=== PATIENT | female | born 1960 | race Caucasian/White ===

== ENCOUNTER 2019-02-22 12:51 | Observation (INO) | payer OTHER ==
[~2019-02-22] VITALS: Ht 160 cm; Wt 54.4 kg
[~2019-02-22 12:51] MED LIST: CITA10TA11 PO; GABA400C PO; HYDR-5123 PO; METO10TA10 PO; PANT20EC PO; QUET300T1 PO
[2019-02-22 13:27] VITALS: BP 138/80
--- NOTE | 2019-02-22 13:29 | NUR ---
AMBULATES BACK TO THE LOBBY
[2019-02-22 16:34] LABS: BASOPHILS # (AUTO) 0.1 K/uL (0.00-0.22); BASOPHILS % (AUTO) 0.8 % (0.0-2.0); EOSINOPHILS # (AUTO) 0.1 K/uL (0-0.4); EOSINOPHILS % (AUTO) 0.6 % (0.0-4.0); HEMATOCRIT 40.2 % (36-48); HEMOGLOBIN 13.3 g/dL (12.0-16.0); LYMPHOCYTES # (AUTO) 3.3 K/uL (2.5-16.5); LYMPHOCYTES % (AUTO) 37.3 % (20.5-51.1); MEAN CORPUSCULAR HEMOGLOBIN 28 pg (27-31); MEAN CORPUSCULAR HGB CONC 33 g/dL (33-37); MEAN CORPUSCULAR VOLUME 85.8 fL (80-94); MONOCYTES # (AUTO) 0.6 K/uL (0.8-1.0); MONOCYTES % (AUTO) 7.3 % (1.7-9.3); NEUTROPHILS # (AUTO) 4.7 K/uL (1.8-7.7); PLATELET COUNT (AUTO) 440 K/uL (140-450); RED BLOOD CELL COUNT(AUTO) 4.68 MIL/uL (4.20-5.40); RED CELL DISTRIBUTION WIDTH 15.4 % (11.6-13.7); WHITE BLOOD COUNT (AUTO) 8.7 K/uL (4.8-10.8)
--- NOTE | 2019-02-22 16:35 | NUR ---
PT AMBULATED TO BED 08
--- NOTE | 2019-02-22 16:49 | NUR ---
C/O ABDOMINAL PAIN, UNABLE TO HOLD FOOD FOR ONE WEEK , UNABLE TO URINATE SINCE LAST FRIDAY ( TWO DAYS AGO) PT WENT TO [place] 6 WEEKS AGO, THEN TRANSFERRED TO [place]. HX: GERD . DENIES V/D; SKIN IS PINK/WARM/DRY; AAOX4 WITH EVEN AND STEADY GAIT; LUNGS CLEAR BL; HR EVEN AND REGULAR; PT DENIES ANY FEVER, SOB, AT THIS TIME; PATIENT STATES PAIN OF 10/10 AT THIS TIME; VSS; PATIENT POSITIONED FOR COMFORT; HOB ELEVATED; BEDRAILS UP X2; BED DOWN. ER MD MADE AWARE OF PT STATUS.
[2019-02-22] MEDS ORDERED: NACL 0.9% 1,000 ML IV ONE ×2 (16:55→19:05)
[2019-02-22] MEDS ORDERED: ALUMINUM HYD/MAG/SIMETHICONE 30 ML, DICYCLOMINE HCL LIQUID 20 MG, LIDOCAINE VISCOUS 2% ... PO ONE ×3 (16:55)
[2019-02-22] MEDS ORDERED: ONDANSETRON 4 MG/2 ML VIAL IVP ONE (16:55)
[2019-02-22 16:57] LABS: ALBUMIN 4.1 g/dL (3.4-5.0); CARBON DIOXIDE 28.1 mmol/L (21-32); POTASSIUM 4.1 mmol/L (3.5-5.1); TOTAL BILIRUBIN 0.4 mg/dL (0.0-1.0)
[2019-02-22] MEDS ORDERED: ALUMINUM HYD/MAG/SIMETHICONE 30 ML UDC ONE (16:59)
[2019-02-22] MEDS ORDERED: DICYCLOMINE HCL LIQUID 10 MG/5 ML UDC ONE (16:59)
[2019-02-22] MEDS ORDERED: LIDOCAINE VISCOUS 2% 20 ML UDC ONE (16:59)
--- NOTE | 2019-02-22 17:39 | NUR ---
PT LEFT FOR ABD XRAY PER TECH PER WHEELCHAIR.
[2019-02-22] MEDS ORDERED: MORPHINE SULFATE 4 MG/ML SYR IVP ONE (18:35)
--- NOTE | 2019-02-22 19:07 | NUR ---
RECEIVED REPORT FROM MAEVE PARTIDA.
--- NOTE | 2019-02-22 19:07 | NUR ---
endorsed pt to PM shift RN.
[2019-02-22] MEDS ORDERED: TRAZ-343 PO (19:57)
[2019-02-22] MEDS ORDERED: QUET400T PO (19:58)
[2019-02-22] MEDS ORDERED: CITA-72 PO (19:59)
[2019-02-22] MEDS ORDERED: MIRT30TA PO (19:59)
[2019-02-22] MEDS ORDERED: ROPI2TER PO (20:00)
[2019-02-22] MEDS ORDERED: CLON1TAB PO (20:00)
[2019-02-22] MEDS ORDERED: QUET100T PO (20:01)
[2019-02-22] MEDS ORDERED: OMEP20TC12 PO (20:02)
--- NOTE | 2019-02-22 20:23 | NUR ---
Patient Will go to room. Belongings list completed. Report to [ MAEVE GRIMM].
[2019-02-22 20:25] VITALS: BP 154/70
--- NOTE | 2019-02-22 20:25 | NUR ---
RECEIVED PT FROM ER VIA WHEELCHAIR PT AMBULATORY AAOX4 COMPLAINING FOR N/V FOR 5 DAYS, NOT ACTIVE VOMITING AT THIS TIME HL ON LEFT WRIST PATENT MRSA NARES PROTOCOL TAKEN AND SENT TO LAB PT IS ORIENTED TO THE FLOOR CALL LIGHT WITHIN REACH
[2019-02-22] MEDS ORDERED: traZODone 50 MG TAB PO SCH (21:00)
[2019-02-22] MEDS ORDERED: MIRTAZAPINE 15 MG TAB PO SCH (21:00)
[2019-02-22] MEDS ORDERED: MAGNESIUM OXIDE 400 MG TAB PO PRN (21:50)
[2019-02-22] MEDS ORDERED: LORazepam 2 MG/ML VIAL IVP PRN (21:50)
[2019-02-22] MEDS ORDERED: ZOLPIDEM 5 MG TAB PO PRN (21:50)
[2019-02-22] MEDS ORDERED: ONDANSETRON 4 MG/2 ML VIAL IVP PRN (21:50)
[2019-02-22] MEDS ORDERED: DOCUSATE SODIUM 250 MG GELCAP PO PRN (21:50)
[2019-02-22] MEDS ORDERED: MAG SULF 2000 MG/WATER PREMIX 50 ML IV PRN (21:50)
[2019-02-22] MEDS ORDERED: HYDROcodone/APAP 5/325 MG 1 TAB TAB PO PRN (21:50)
[2019-02-22] MEDS ORDERED: ACETAMINOPHEN 325 MG TAB PO PRN (21:50)
[2019-02-22] MEDS ORDERED: POTASSIUM CHLORIDE 10 MEQ TABER PO PRN (21:50)
[2019-02-22] MEDS ORDERED: diphenhydrAMINE 50 MG/ML VIAL IVP PRN (21:50)
[2019-02-22] MEDS: DEXT 5% / NACL 0.45% 1,000 ML IV SCH (23:13)
--- NOTE | 2019-02-22 23:20 | NUR ---
DR LILLY CALL TO BE INFORMED ABOUT PT CONDITION AND HE ORDER EGD FOR TOMORROW AND KEEP PT NPO, AND PT IS AWARE
[2019-02-22] MEDS: MORPHINE SULFATE 2 MG/ML SYR IVP PRN (23:31)
[2019-02-23] VITALS: BP 140/70
--- NOTE | 2019-02-23 03:00 | NUR ---
PT SLEEPING DENIES ANY PAIN DENIES ANY NAUSEAS/VOMITING
--- NOTE | 2019-02-23 04:35 | NUR ---
PT RESTING ON BED DENIES ASNY PAIN OR DISCOMFORT NOT N/V PT IS NPO FOR EGD THIS AM
--- NOTE | 2019-02-23 06:00 | NUR ---
CONSENT SIGNED FOR EGD PT NPO
[2019-02-23 06:22] LABS: BASOPHILS % (AUTO) 0.9 % (0.0-2.0); EOSINOPHILS # (AUTO) 0.1 K/uL (0-0.4); EOSINOPHILS % (AUTO) 1.7 % (0.0-4.0); HEMOGLOBIN 11.3 g/dL (12.0-16.0); LYMPHOCYTES % (AUTO) 57.7 % (20.5-51.1); MEAN CORPUSCULAR HEMOGLOBIN 29 pg (27-31); MEAN CORPUSCULAR HGB CONC 33 g/dL (33-37); MEAN CORPUSCULAR VOLUME 86.6 fL (80-94); MONOCYTES # (AUTO) 0.5 K/uL (0.8-1.0); MONOCYTES % (AUTO) 8.8 % (1.7-9.3); NEUTROPHILS # (AUTO) 1.6 K/uL (1.8-7.7); NEUTROPHILS % (AUTO) 30.9 % (42.2-75.2); PLATELET COUNT (AUTO) 290 K/uL (140-450); RED BLOOD CELL COUNT(AUTO) 3.93 MIL/uL (4.20-5.40); RED CELL DISTRIBUTION WIDTH 15.5 % (11.6-13.7); WHITE BLOOD COUNT (AUTO) 5.2 K/uL (4.8-10.8)
--- NOTE | 2019-02-23 07:00 | NUR ---
PT IS ENDORSED TO DAY SHIFT NURSE FOR CONTINUE OF CARE
[2019-02-23 07:01] LABS: ANION GAP 11.5 (8-16); CARBON DIOXIDE 25.8 mmol/L (21-32); CREATININE 0.8 mg/dL (0.6-1.3); MAGNESIUM 1.9 mg/dL (1.8-2.4); POTASSIUM 3.3 mmol/L (3.5-5.1); TOTAL BILIRUBIN 0.3 mg/dL (0.0-1.0)
--- NOTE | 2019-02-23 07:10 | NUR ---
RECEIVED BEDSIDE REPORT FROM NIGHT NURSE. PATIENT IS ASLEEP, EASILY AROUSABLE. RESPIRATIONS EVEN AND UNLABORED. IV INTACT AND PATENT TO LEFT WRIST WITH IVF D5 HALF NS INFUSING @ 85ML/HR. PLANS OF CARE DISCUSSED. BED IN LOW POSITION. CALL LIGHT WITHIN REACH.
[2019-02-23 08:00] VITALS: BP 149/75
--- NOTE | 2019-02-23 08:00 | NUR ---
BLADDER SCAN DONE. NOTED 200-360 ML OF URINE.
--- NOTE | 2019-02-23 09:00 | NUR ---
PATIENT ABLE TO URINATE TO THE BATHROOM. URINE COLLECTED AND SENT TO LAB.
--- NOTE | 2019-02-23 09:16 | NUR ---
PATIENT HAS BEEN SCREENED AND CATEGORIZED HIGH NUTRITION RISK. PATIENT WILL BE SEEN WITHIN 1-2 DAYS OF ADMISSION. 02/23/19-02/24/[address]
[2019-02-23] MEDS: clonazePAM 0.5 MG TAB PO SCH ×3 (09:17→17:59)
[2019-02-23] MEDS: QUEtiapine FUMARATE 100 MG TAB PO SCH ×3 (09:17→17:58)
[2019-02-23] MEDS: MORPHINE SULFATE 2 MG/ML SYR IVP PRN (09:18)
[2019-02-23] MEDS: DEXT 5% / NACL 0.45% 1,000 ML IV SCH (09:41)
--- NOTE | 2019-02-23 10:55 | NUR ---
PATIENT IS OFF UNIT ON SCHEDULED FOR EGD PICKED UP BY MAEVE HERR.
[2019-02-23] MEDS ORDERED: MIDAZOLAM 2 MG/2 ML VIAL ONE (11:02)
[2019-02-23] MEDS ORDERED: fentaNYL 0.05 MG/ML VIAL ONE (11:02)
[2019-02-23] MEDS ORDERED: MIDAZOLAM 2 MG/2 ML VIAL IVP ONE (11:26)
[2019-02-23] MEDS ORDERED: fentaNYL 0.05 MG/ML VIAL IVP ONE (11:28)
--- NOTE | 2019-02-23 11:55 | NUR ---
PATIENT RETURNED FROM EGD PROCEDURE. RECEIVED REPORT FROM MAEVE HERR. PATIENT IS BACK IN BED.
--- NOTE | 2019-02-23 12:55 | NUR ---
PATIENT IS ASLEEP, EASILY AROUSABLE. RESPIRATIONS EVEN AND UNLABORED. NO S/S OF DISTRESS NOTED. WILL CONTINUE TO MONITOR. CALL LIGHT WITHIN REACH.
--- NOTE | 2019-02-23 14:00 | NUR ---
PATIENT IS ASLEEP, EASILY AROUSABLE. RESPIRATIONS EVEN AND UNLABORED. DENIES ANY PAIN OR DISCOMFORT. CALL LIGHT WITHIN REACH. NO S/S OF DISTRESS NOTED.
--- NOTE | 2019-02-23 15:32 | NUR ---
DISCHARGE PLANNING: A 58 Y/O FEMALE PATIENT, WHO CAME IN DUE TO ABDOMINAL PAIN. PAST MEDICAL HISTORY INCLUDE PEPTIC ULCER DISEASE AND GERD, PANCREATITIS, ANXIETY AND DEPRESSION. INITIAL DIAGNOSIS OF NAUSEA, VOMITING AND DIARRHEA. CURRENT LABS INCLUDE WBC 5.2, H/H 11.3/34.0, NA/K 142/3.3, AMYLASE/LIPASE 207/1492. CURRENT MEDS INCLUDE SEROQUEL AND CLONAZEPAM. MRSA NARES PENDING. GI CONSULT WITH DR. LILLY FOR ESOPHAGEAL STRICTURE. FOR POSSIBLE DC ONCE GI CLEARS.
--- NOTE | 2019-02-23 15:45 | NUR ---
PER DR. SHARPE PT IS CLEARED TO BE DISCHARGED TODAY. PER INSTRUCT PATIENT TO FOLLOW UP WITH HER PCP AND START ON PUREE DIET.
--- NOTE | 2019-02-23 15:59 | NUR ---
02/23/19 RD INITIAL ASSESSMENT COMPLETED PLEASE REFER TO NUTRITION ASSESSMENT UNDER CARE ACTIVITY FOR ESTIMATED NUTRITIONAL NEEDS. 1. CONTINUE NPO DIET PER MD 2. WHEN MEDICALLY STABLE/APPROPRIATE, UPGRADE PT TO CLEAR LIQUID DIET W/ ENSURE CLEAR. 3. IF PT IS UNABLE TO TOLERATE PO INTAKE, CONSIDER NUTRITION SUPPORT. 4. RD TO FOLLOW-UP 2-3 DAYS, HIGH RISK HAYDE [address]FIELD RD
[2019-02-23 16:00] VITALS: BP 130/71
[2019-02-23 16:36] LABS: APPEARANCE,URINE HAZY (CLEAR); BILIRUBIN,URINE 1+ (NEGATIVE); BLOOD, URINE NEGATIVE (NEGATIVE); COLOR,URINE AMBER (YELLOW); LEUKOCYTE ESTERASE ,URINE 2+ (NEGATIVE); NITRITE, URINE NEGATIVE (NEGATIVE); UGLUCOSE NEGATIVE (NEGATIVE)
[2019-02-23 16:45] LABS: BARBITURATE, URINE NEG. ng/ml (NEG <=200); BENZODIAZEPINE, URINE POS. ng/mL (NEG <=200); CANNABINOID, URINE NEG. ng/mL (NEG <=50); COCAINE, URINE NEG. ng/mL (NEG <=300); OPIATE, URINE POS. ng/mL (NEG <=2000); PHENCYCLIDINE SCREEN,URINE NEG. ng/mL (NEG <=25)
[2019-02-23 17:10] LABS: RBC,URINE 0 /HPF (0-5)
[2019-02-23 17:11] LABS: CALCIUM OXALATE CRYSTALS,UR 30-50 /HPF (None Seen)
--- NOTE | 2019-02-23 19:00 | NUR ---
PATIENT IS FOR DISCHARGED PATIENT STATED HER FRIEND WILL PICK HER UP EARLIER. AT THIS TIME PATIENT REQUESTED BUS PASS DUE TO HER FRIEND UNABLE TO TAKE HER HOME. PATIENT IS STABLE.
--- NOTE | 2019-02-23 19:05 | NUR ---
REPORT GIVEN TO NIGHT NURSE FOR CONTINUITY OF CARE. PATIENT IS STABLE FOR DISCHARGE. DISCHARGE INSTRUCTIONS, PRESCRIPTIONS AND ALL BELONGINGS SIGNED FOR. PATIENT IS WAITING FOR HER TRANSPORTATION. IV CANNULA, ID BAND REMOVED.
--- NOTE | 2019-02-23 19:10 | NUR ---
RECEIVED PT FROM DAY SHIFT NURSE PT IS AAOX4 AMBULATORY IV IS REMOVED PT IS READY TO GO HOME ALL PAPER WORK SIGNED AND READY FOR DISCHARGED
--- NOTE | 2019-02-23 19:40 | NUR ---
PT FRIEND NEURODIAGNOSTIC TECHNOLOGIST THE PT AND SET UP / OPERATOR IS TAKEN PT TO THE PARKING LOT ON [address]
== END 2019-02-23 19:40 | disposition home or self-care (01) ==
LOC: MED 12:51 → MMU 19:50 → INTOOBSV 19:50
PROVIDERS: ADMIT Internal Medicine Pulmonary Disease; ATTEND Internal Medicine Pulmonary Disease
DX: T18.128A Food in esophagus causing other injury, initial encounter (principal); K22.2 Esophageal obstruction; K22.70 Barrett's esophagus without dysplasia; M54.5 Low back pain; G89.4 Chronic pain syndrome; F41.9 Anxiety disorder, unspecified; F32.9 Major depressive disorder, single episode, unspecified; E86.0 Dehydration; Z87.11 Personal history of peptic ulcer disease; Z87.891 Personal history of nicotine dependence
CPT/HCPCS: 36415; 43249; 71045; 74021; 80053; 80305; 81001; 82150; 83690; 83735; 85025; 87081; 87086; 88305; 88313; 96361; 96374; 96375; 96376; 99285; G0378; J2250; J2270; J2405; J3010; J7030; J1200